=== PATIENT | female | born 1990 | race Caucasian/White ===

== ENCOUNTER 2020-02-16 11:20 | Observation (INO) ==
[2020-02-16] MEDS ORDERED: Ondansetron 4 MG/2 ML VIAL IVP ONE ×2 (12:02→15:41)
[2020-02-16] MEDS ORDERED: 0.9 % Sodium Chloride 1,000 ML IVC ONE ×2 (12:02→15:41)
[2020-02-16 12:11] LABS: Bilirubin,Urine Small (Negative); Blood,Urine Large (Negative); Clarity,Urine Ex.Turbid (Clear); Color,Urine Dark-Orange (Yellow); Glucose,Urine (UA) Normal (Normal); Ketones,Urine 40 mg/dL (Negative); Leukocyte Esterase,Urine Negative (Negative); Mucus,Urine Many per lpf (None-Few); Nitrite,Urine Positive (Negative); Protein,Urine 200 mg/dL (Neg-Trace); RBC,Urine TNTC per hpf (0-3); Specific Gravity,Urine > 1.030 (1.010-1.025); Squamous Epithelial Cell,Urine Many per hpf (None-Few); WBC,Urine 30-50 per hpf (0-3)
[2020-02-16] MEDS ORDERED: cefTRIAXone 2,000 MG in 0.9 % Sodium Chloride Mini Bag 100 ML IVPB ONE (13:10)
[2020-02-16] MEDS ORDERED: cefTRIAXone 2,000 MG in Water for inj. (sterile) 20 ML IVP ONE (14:00)
[2020-02-16 14:02] LABS: Hematocrit 41.5 % (35.3-44.9); Hemoglobin 13.7 g/dL (11.5-15.4); Mean Corpuscular Hemoglobin 30.2 pg (28.0-33.3); Mean Corpuscular Volume 91.4 fL (83.0-100.0); Mean Platelet Volume 11.2 fL (9.4-12.4); Platelet Count 252 K/mcL (140-400); Red Blood Count 4.54 M/mcL (3.82-4.97); Red Cell Distribution Width 11.8 % (11.5-14.5); White Blood Count 11.2 K/mcL (4.3-11.1)
[2020-02-16 14:11] LABS: BUN/Creatinine Ratio 24 (6-26); Blood Urea Nitrogen 18 mg/dL (6-20); Carbon Dioxide 23 mEq/L (23-29); Chloride 108 mEq/L (98-107); Glucose 79 mg/dL (70-105); Osmolality,Calculated 291 (280-300); Potassium 3.7 mEq/L (3.5-5.1); Sodium 140 mEq/L (136-145); eGFR For African Americans > 60 (> 60); eGFR For Non-African Americans > 60 (> 60)
[2020-02-16] MEDS ORDERED: Cefuroxime PO 500 MG TABLET PO ONE (14:38)
[2020-02-16] MEDS ORDERED: *HR* HYDROmorphone (PF) 1 MG/ML SYRINGE IVP ONE (15:40)
[2020-02-16] MEDS ORDERED: Naloxone 0.4 MG/ML INJ IVP PRN ×2 (16:29→17:35)
[2020-02-16] MEDS ORDERED: *HR* HYDROcodone/Acet 5/325 mg TABLET PO PRN (16:29)
[2020-02-16] MEDS ORDERED: Acetaminophen 325 MG TABLET PO PRN ×3 (16:29→22:41)
[2020-02-16] MEDS ORDERED: Ondansetron 4 MG/2 ML VIAL IVP PRN ×2 (16:29→17:35)
[2020-02-16] MEDS ORDERED: 0.9 % Sodium Chloride 1,000 ML IVC SCH (16:30)
[2020-02-16] MEDS: 0.9 % Sodium Chloride 1,000 ML IVC SCH (18:28)
[2020-02-16] MEDS: *HR* HYDROcodone/Acet 5/325 mg TABLET PO PRN (18:28)
[2020-02-16] MEDS ORDERED: Melatonin 3 MG TABLET PO ONE (21:00)
[2020-02-16] MEDS: Ketorolac 30 MG/ML VIAL IVP PRN (22:48)
[2020-02-16] MEDS ORDERED: Acetaminophen IV 1,000 MG/100 ML BAG IVPB ONE (22:55)
[2020-02-17] MEDS: 0.9 % Sodium Chloride 1,000 ML IVC SCH (02:30)
[2020-02-17 07:32] LABS: Basophils % 0.4 %; Eosinophils # 0.1 K/mcL (0.0-0.6); Eosinophils % 1.5 %; Hematocrit 37.1 % (35.3-44.9); Hemoglobin 12.4 g/dL (11.5-15.4); Immature Granulocytes % 0.4 % (0-4); Lymphocytes # 1.6 K/mcL (0.6-4.6); Lymphocytes % 23.7 %; Mean Corpuscular HGB Conc 33.4 g/dL (31.6-35.5); Mean Corpuscular Hemoglobin 30.5 pg (28.0-33.3); Mean Corpuscular Volume 91.4 fL (83.0-100.0); Monocytes # 0.6 K/mcL (0.0-1.3); Neutrophils # 4.5 K/mcL (1.6-8.9); Platelet Count 199 K/mcL (140-400); Red Blood Count 4.06 M/mcL (3.82-4.97); Red Cell Distribution Width 11.9 % (11.5-14.5); White Blood Count 6.9 K/mcL (4.3-11.1)
[2020-02-17 07:51] LABS: BUN/Creatinine Ratio 17 (6-26); Blood Urea Nitrogen 11 mg/dL (6-20); Calcium 8.2 mg/dL (8.6-10.3); Carbon Dioxide 21 mEq/L (23-29); Chloride 111 mEq/L (98-107); Glucose 91 mg/dL (70-105); Osmolality,Calculated 285 (280-300); Potassium 3.9 mEq/L (3.5-5.1); Sodium 138 mEq/L (136-145); eGFR For African Americans > 60 (> 60); eGFR For Non-African Americans > 60 (> 60)
[2020-02-17] MEDS: Ketorolac 30 MG/ML VIAL IVP PRN (07:57)
[2020-02-17] MEDS: *HR* HYDROcodone/Acet 5/325 mg TABLET PO PRN (08:02)
[2020-02-17] MEDS ORDERED: Fluticasone Propionate Nasal 50 MCG/SPRAY BOTTLE NS PRN ×3 (08:43→17:32)
[2020-02-17] MEDS ORDERED: Loratadine 10 MG TABLET PO PRN ×2 (08:43→17:32)
[2020-02-17] MEDS ORDERED: NORGESTREL ETHINYL ESTRADIOL PO SCH (09:00)
[2020-02-17] MEDS ORDERED: cefTRIAXone 1,000 MG in Water for inj. (sterile) 10 ML IVP SCH (09:00)
[2020-02-17] MEDS ORDERED: *HR* HYDROcodone/Acet 5/325 mg TABLET PO ONE (11:51)
[2020-02-17] MEDS ORDERED: Promethazine 6.25 MG in Water for inj. (sterile) 20 ML IVPB PRN (15:42)
[2020-02-17] MEDS ORDERED: *HR* FentaNYL (PF) 100 MCG/2 ML VIAL IVP PRN (15:42)
[2020-02-17] MEDS ORDERED: *HR* Midazolam HCl 2 MG/2 ML VIAL IVP PRN ×2 (15:42→17:32)
[2020-02-17] MEDS ORDERED: Ondansetron 4 MG/2 ML VIAL ONE (16:08)
[2020-02-17] MEDS ORDERED: Lidocaine -MPF 2% 2 ML VIAL ONE (16:08)
[2020-02-17] MEDS ORDERED: *HR* Midazolam HCl 2 MG/2 ML VIAL ONE (16:09)
[2020-02-17] MEDS ORDERED: *HR* FentaNYL (PF) 100 MCG/2 ML VIAL ONE (16:09)
[2020-02-17] MEDS ORDERED: *HR* HYDROcodone/Acet 7.5/325 mg TABLET PO ONE (17:08)
[2020-02-17] MEDS ORDERED: *HR* HYDROcodone/Acet 5/325 mg TABLET PO PRN ×2 (17:32→18:36)
[2020-02-17] MEDS ORDERED: Ketorolac 30 MG/ML VIAL IVP PRN (17:32)
[2020-02-17] MEDS ORDERED: Ondansetron 4 MG/2 ML VIAL IVP PRN (17:32)
[2020-02-17] MEDS ORDERED: Naloxone 0.4 MG/ML INJ IVP PRN (17:32)
[2020-02-17] MEDS ORDERED: *HR* OxyCODONE Immed Rel 5 MG TABLET PO PRN (18:35)
[2020-02-17] MEDS ORDERED: Simethicone 80 MG TAB.CHEW PO ONE (22:37)
[2020-02-18 06:22] LABS: BUN/Creatinine Ratio 17 (6-26); Blood Urea Nitrogen 12 mg/dL (6-20); Calcium 9.2 mg/dL (8.6-10.3); Carbon Dioxide 22 mEq/L (23-29); Chloride 106 mEq/L (98-107); Glucose 139 mg/dL (70-105); Magnesium 1.9 mg/dL (1.6-2.6); Osmolality,Calculated 284 (280-300); Potassium 3.9 mEq/L (3.5-5.1); Sodium 136 mEq/L (136-145); eGFR For African Americans > 60 (> 60); eGFR For Non-African Americans > 60 (> 60)
[2020-02-18 07:18] VITALS: BP 128/77
[2020-02-18] MEDS ORDERED: cefTRIAXone 1,000 MG in Water for inj. (sterile) 10 ML IVP SCH (09:00)
[2020-02-18] MEDS ORDERED: NORGESTREL ETHINYL ESTRADIOL PO SCH (09:00)
[2020-02-23 20:32] LABS: Calculi Mass 16 mg
== END 2020-02-18 12:37 | disposition home or self-care (01) ==
LOC: 3BNU 11:20 → EMEROOARM 11:20 → SUATTDRO 16:04 → 3BNU 18:08
PROVIDERS: ADMIT Internal Medicine; ATTEND Internal Medicine